=== PATIENT | male | born 1975 | race Caucasian/White ===

== ENCOUNTER 2016-04-17 18:57 | Emergency (ER) | payer OTHER ==
[2016-04-17 19:10] VITALS: BP 135/68; PULSE 92; TEMP 101.1; BMI 28.2
[2016-04-17] MEDS ORDERED: IBUPROFEN 400 MG TABLET (FP) PO ONE ×2 (19:20→19:32)
[2016-04-17] MEDS ORDERED: CEPHALEXIN MONOHYDRATE 250 MG CAPSULE (FP) ONE (19:21)
--- NOTE | 2016-04-17 19:30 | PDOC ---
History of Present Illness - General History Source: Patient Exam Limitations: No Limitations <Korey Velez - Last Filed: 04/17/16 19:25> - General History Source: Patient Exam Limitations: No Limitations - History of Present Illness Initial Comments: 04/17/16 19:31 The patient is a 41 year old male, with no significant past medical history who presents to the emergency department with 101 fever and possible left extremity wound infection. 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 He reports now the wound is red and has gotten more swollen. He denies chills, headache and dizziness. He denies nausea, vomit, diarrhea and constipation. Allergies: NKA Past surgical history: denies Social History: denies drug use, denies tobacco use PCP: <Benedict Varela - Last Filed: 04/17/16 19:31> - General Chief Complaint: Wound Infection Stated Complaint: INFECTION LEFT LEG Time Seen by Provider: 04/17/16 19:15 Past History - Surgical History Abdominal Surgery: No - Psycho/Social/Smoking Cessation Hx Anxiety: No Suicidal Ideation: No Smoking History: Never smoked Have you smoked in the past 12 months: No Number of Cigarettes Smoked Daily: 0 Information on smoking cessation initiated: No Hx Alcohol Use: No Drug/Substance Use Hx: No Substance Use Type: Alcohol <Korey Velez - Last Filed: 04/17/16 19:25> <Benedict Varela - Last Filed: 04/17/16 19:31> - Past Medical History Allergies/Adverse Reactions: Allergies Allergy/AdvReac Type Severity Reaction Status Date / Time No Known Allergies Allergy Verified 04/17/16 18:58 Home Medications: Ambulatory Orders Ibuprofen [Advil -] 400 mg PO ONCE PRN 01/01/16 Cephalexin [Keflex] 500 mg PO QID #28 capsule 04/17/16 Review of Systems - Review of Systems Able to Perform ROS?: Yes Is the patient limited Macedonian proficient: No Constitutional: No: Symptoms Reported HEENTM: No: Symptoms Reported Respiratory: No: Symptoms reported Cardiac (ROS): No: Symptoms Reported Integumentary: Yes: Symptoms Reported, See HPI All Other Systems: Reviewed and Negative <Korey Velez - Last Filed: 04/17/16 19:25> *Physical Exam - Vital Signs Last Vital Signs Temp Pulse Resp BP Pulse Ox 101.1 F H 92 H 16 135/68 98 04/17/16 19:04 04/17/16 19:04 04/17/16 19:04 04/17/16 19:04 04/17/16 19:04 - Physical Exam General Appearance: Yes: Nourished, Appropriately Dressed. No: Apparent Distress Neck: positive: Supple. negative: Tender Respiratory/Chest: positive: Lungs Clear, Normal Breath Sounds. negative: Chest Tender, Respiratory Distress Cardiovascular: positive: Regular Rhythm, Regular Rate Musculoskeletal: positive: Normal Inspection. negative: Vertebral Tenderness Extremity: positive: Normal Capillary Refill, Normal Range of Motion Integumentary: positive: Erythema (lower leg and prox foot. c/w cellulitis) Neurologic: positive: Fully Oriented, Alert, Normal Mood/Affect, Normal Response , Motor Strength 5/5 <Korey Velez - Last Filed: 04/17/16 19:25> - Vital Signs Last Vital Signs Temp Pulse Resp BP Pulse Ox 101.1 F H 92 H 16 135/68 98 04/17/16 19:04 04/17/16 19:04 04/17/16 19:04 04/17/16 19:04 04/17/16 19:04 <Benedict Varela - Last Filed: 04/17/16 19:31> *DC/Admit/Observation/Transfer <Korey Velez - Last Filed: 04/17/16 19:25> <Benedict Varela - Last Filed: 04/17/16 19:31> Diagnosis at time of Disposition: Cellulitis Qualifiers: Site of cellulitis: extremity Site of cellulitis of extremity: lower extremity Laterality: left Qualified Code(s): L03.116 - Cellulitis of left lower limb - Discharge Dispostion Condition at time of disposition: Stable - Prescriptions Prescriptions: Cephalexin [Keflex] 500 mg PO QID #28 capsule - Patient Instructions Additional Instructions: TAKE MEDICATIONS PRESCRIBED LEG ELEVATION FOR 2 DAYS SEE YOUR DOCTOR IN 2 DAYS RETURN IF WORSENING OR NEW SYMPTOMS MOTRIN/TYLENOL FOR PAIN / FEVER
[2016-04-17] MEDS ORDERED: CEPHALEXIN MONOHYDRATE 500 MG CAPSULE (UD) PO ONE (19:31)
== END 2016-04-17 19:33 | disposition home or self-care (01) ==
LOC: FER 18:57
DX: L03.116 Cellulitis of left lower limb (principal); W11.XXXA Fall on and from ladder, initial encounter; Y93.89 Activity, other specified; Y92.9 Unspecified place or not applicable; Y99.0 Civilian activity done for income or pay
CPT/HCPCS: 99281-25